=== PATIENT | female | born 1985 | race Caucasian/White ===

== ENCOUNTER → 2024-04-10 07:49 | Outpatient (REF) | payer OTHER, SELFPAY | LOC: HWRAD 07:49 | PROVIDERS: ATTENDING PHYSICIAN Obstetrics & Gynecology; FAMILY PHYSICIAN Family Medicine | DX: N92.6 Irregular menstruation, unspecified (principal); R10.2 Pelvic and perineal pain | CPT/HCPCS: 76830; 76856 ==

== ENCOUNTER → 2025-01-12 16:10 | Outpatient (REF) | payer OTHER, SELFPAY | LOC: RAD 16:10 | PROVIDERS: ATTENDING PHYSICIAN Specialist; FAMILY PHYSICIAN Family Medicine | DX: R51.9 Headache, unspecified (principal) | CPT/HCPCS: 70470; Q9967 ==

== ENCOUNTER → 2025-02-20 14:58 | Outpatient (REF) | payer OTHER, SELFPAY | LOC: PAVMRI 14:58 | PROVIDERS: ATTENDING PHYSICIAN Specialist; FAMILY PHYSICIAN Family Medicine | DX: M43.02 Spondylolysis, cervical region (principal) | CPT/HCPCS: 72141 ==